=== PATIENT | male | born 1950 | race Caucasian/White ===

== ENCOUNTER → 2023-07-31 11:15 | Outpatient (REF) | payer MEDICARE, OTHER, SELFPAY | LOC: RAD 11:15 | PROVIDERS: ATTENDING PHYSICIAN Internal Medicine Endocrinology, Diabetes & Metabolism; FAMILY PHYSICIAN Internal Medicine Geriatric Medicine | DX: E04.2 Nontoxic multinodular goiter (principal); E03.9 Hypothyroidism, unspecified | CPT/HCPCS: 76536 ==

== ENCOUNTER → 2023-09-11 11:17 | Outpatient (REF) | payer MEDICARE, OTHER, SELFPAY | LOC: RAD 11:17 | PROVIDERS: ATTENDING PHYSICIAN Nurse Practitioner Family; FAMILY PHYSICIAN Internal Medicine Geriatric Medicine | DX: R35.0 Frequency of micturition (principal); R39.198 Other difficulties with micturition | CPT/HCPCS: 76770 ==

== ENCOUNTER → 2023-09-22 16:30 | Outpatient (REF) | payer MEDICARE, OTHER, SELFPAY | LOC: RAD 16:30 | PROVIDERS: ATTENDING PHYSICIAN Internal Medicine Cardiovascular Disease; FAMILY PHYSICIAN Internal Medicine Geriatric Medicine | DX: I10 Essential (primary) hypertension (principal) | CPT/HCPCS: 75571 ==

== ENCOUNTER → 2023-10-12 06:43 | Outpatient (REF) | payer MEDICARE, OTHER, SELFPAY | LOC: RCS 06:43 | PROVIDERS: ATTENDING PHYSICIAN Internal Medicine Geriatric Medicine; REFERRING PHYSICIAN Internal Medicine Cardiovascular Disease | DX: I25.10 Atherosclerotic heart disease of native coronary artery without angina pectoris (principal) | CPT/HCPCS: 78452; 93017; A9500 ==

== ENCOUNTER → 2024-08-18 10:32 | Outpatient (REF) | payer MEDICARE, OTHER, SELFPAY | LOC: RAD 10:32 | PROVIDERS: ATTENDING PHYSICIAN Internal Medicine Endocrinology, Diabetes & Metabolism; FAMILY PHYSICIAN Internal Medicine Geriatric Medicine | DX: E04.2 Nontoxic multinodular goiter (principal); E03.9 Hypothyroidism, unspecified | CPT/HCPCS: 76536 ==